=== PATIENT | female | born 1975 | race Caucasian/White ===

== ENCOUNTER 2017-01-25 15:55 | Inpatient (IN) | payer MEDICAID ==
[2017-01-25] MEDS ORDERED: Sodium Citrate/Citric Acid 15 ml Sol PO ONE (16:56)
[2017-01-25] MEDS ORDERED: Lactated Ringer's 1,000 ML IV SCH (17:00)
--- NOTE | 2017-01-25 17:04 | OBHP ---
Datetime: 01/25/2017 16:57 IP Adm Impression: , intrauterine ; Intact Membranes IP Chief Complaint Other: feeling week and sweating IP Admit Plan: Admit to unit; Initiate Section protocol Admit Comment, IP Provider: at 38+weeks came with c/o ctxs started in am, irrg. c/o weakness an d pain.no vb, lof,+fm. obhx 1 x c/s, 1 x , 1 x pmh den med pnv all nkda psh c/s soch de ve 1-/50/-3 a/p at 38=weeks previous c/s in labor admit to l_d npo/ivf labs pain dhruv anthesiaa aware skin abxs will take informed consent Pelvic Type - PN: Adequate Extremities - PN: Normal Abdomen - PN: Normal Back - PN: Normal Breast - PN: Normal Lungs - PN: Normal Heart - PN: Normal Thyroid - PN: Normal Neurologic - PN: Normal HEENT - PN: Normal General - PN: Normal FHR - Baseline A Provider: 130 Contraction Comments Provider: irrg Comments, ACOG Physical Exam: gravid,non tender ext no edema,no calf ten IP Hx Assessment: The History has been Reviewed and is Current EGA AdmitDate IP: 38.1 Vital Signs Provider: Reviewed; Within Normal Limits IP Chief Complaint: Uterine contractions NICHD Variability Prov Fetus A: Moderate 6-25bpm NICHD Accel Fetus A IP Provider: 15X15 FHR Category Provider Fetus A: Category I Dilatation, Provider: 2 Effacement, Provider: 50 Station, Provider: -3 Genitourinary Exam: Normal DTRs - PN: Normal
[2017-01-25] MEDS ORDERED: Sodium Citrate/Citric Acid 15 ml Sol ONE (17:25)
[2017-01-25] MEDS ORDERED: cefOXitin IV 2 gm in Dextrose 2 GM/50 ML BAG IVPB ONE ×2 (17:26→19:00)
[2017-01-25 17:37] LABS: EOS # 0.2 K/uL (0.0-0.7); MEAN PLATELET VOLUME 8.3 fL (7.2-11.7)
[2017-01-25 17:41] LABS: BASO # 0.1 K/uL (0.0-0.2); BASO % 0.8 % (0.0-2.0); EOS % 2.4 % (0.0-4.0); HEMATOCRIT 37.2 % (34.0-47.0); LYMPH # 1.3 K/uL (1.0-4.3); LYMPH % 18.5 % (20.0-40.0); MEAN CELL VOLUME 86.9 fL (81.0-99.0); MEAN CORPUSCULAR HEMOGLOBIN 30.4 pg (27.0-31.0); MONO # 0.5 K/uL (0.0-0.8); MONO % 7.6 % (0.0-10.0); RED CELL DISTRIBUTION WIDTH 14.5 % (11.5-14.5)
[2017-01-25 17:47] LABS: RBC URINE 6 /hpf (0-3); TRANSITIONAL EPITHIAL < 1 /hpf (0-3); URINE BACTERIA FEW (<OCC); URINE BILIRUBIN NEGATIVE (NEGATIVE); URINE BLOOD 1+ (NEGATIVE); URINE COLOR Yellow (YELLOW); URINE GLUCOSE (UA) NORMAL (Normal); URINE KETONE NEGATIVE (NEGATIVE); URINE LEUKOCYTE ESTERASE 3+ Leu/uL (Negative); URINE PROTEIN NEGATIVE (NEGATIVE); URINE UROBILINOGEN NORMAL mg/dL (0.2-1.0); WBC URINE 27 /hpf (0-5)
[2017-01-25 17:51] LABS: ALKALINE PHOSPHATASE 130 U/L (38-126); ALT/SGPT 21 U/L (9-52); AST/SGOT 12 U/L (14-36); BLOOD UREA NITROGEN 6 mg/dL (7-17); CALCIUM 9.6 mg/dl (8.6-10.4); CARBON DIOXIDE 21 mmol/L (22-30); CHLORIDE 102 mmol/L (98-107); GFR AFRICAN-AMERICAN > 60; GLUCOSE,RANDOM 78 mg/dL (65-105); POTASSIUM 3.9 mmol/L (3.6-5.2); SODIUM 136 mmol/L (132-148); TOTAL PROTEIN 6.8 g/dL (6.3-8.3)
[2017-01-25] MEDS ORDERED: Dextrose 5%/0.45% NS 1,000 ML IV SCH (18:00)
[2017-01-25] MEDS ORDERED: Oxytocin 20 units in LR 2,000 ML IV ONE (18:31)
[2017-01-25] MEDS ORDERED: Morphine 1 mg/ml preservative-free Inj(Duramorph) ONE (18:35)
[2017-01-25] MEDS ORDERED: Oxycodone/Acetaminophen 5/325 mg Tab PO PRN (18:59)
--- NOTE | 2017-01-25 19:20 | PCM.SURG1 ---
Surgeon's Initial Post Op Note - Surgeon's Notes Surgeon: dr santillan Admissions Coordinator: dr delcid Type of Anesthesia: Spinal Anesthesia Administered By: dr chavez Pre-Operative Diagnosis: 41yr at 38+weeks previous c/s in labor Operative Findings: see the op report Post-Operative Diagnosis: same Operation Performed: repeat section Specimen/Specimens Removed: cord blood. placente Estimated Blood Loss: EBL {In ML}: 800 Blood Products Given: N/A Drains Used: No Drains Post-Op Condition: Good Date of Surgery/Procedure: 01/25/17 Time of Surgery/Procedure: 21:50
[2017-01-25] MEDS ORDERED: ePHEDrine 50 mg/ml Inj ONE (19:56)
[2017-01-25] MEDS ORDERED: Phenylephrine 10 mg/ml Inj ONE (19:56)
[2017-01-25] MEDS ORDERED: Oxytocin 10 Units/ml Inj ONE (20:31)
--- NOTE | 2017-01-25 21:06 | OBDS ---
DELIVERY PERSONNEL Delivery Doctor: Zenon Cat MD Scrub Nurse: Maribel Ross OBT [place] Boatman: Brayden Castano RN Anesthesiologist: BAKARI Zhang MATERNAL INFORMATION Delivery Anesthesia: Spinal Maternal Complications: None RN Comments: PT CAME TO UNIT C/O PAIN. IS PREVIOUS C/S WITH 1 . PT WAS PREP FOR C/S ..PT DEL IVERED LIVE BABY BOY. 9/9 BABY TO NBN Provider Comments: baby deliverd in little. end clean no com 9/9 LABOR SUMMARY EDC: 02/07/2017 00:00 No. Babies in Womb: 1 Attempted: No Labor Anesthesia: None LABOR INFORMATION Reason for Induction: Not Applicable Oxytocin: N/A Group B Beta Strep: Positive Antibiotics # of Doses: 1 Antibiotics Time of Last Dose: 18:53 Steroids Given: None Reason Steroids Not Administered: Not Applicable MEMBRANES Membranes Rupture Method: Artificial Rupture of Membranes: 01/25/2017 20:18 Length of Rupture (hrs): 0.03 Amniotic Fluid Color: Clear Amniotic Fluid Amount: Moderate Amniotic Fluid Odor: Normal STAGES OF LABOR Stage 3 hrs: 0 Stage 3 min: 1 VAGINAL DELIVERY Episiotomy: None Laceration Extension: N/A Laceration Type: None CSECTION DELIVERY Primary Indication: Repeat Elective Secondary Indication: abdominal pain CSection Urgency: Emergency CSection Incidence: Repeat Labor: No Labor Elective: Elective CSection Incision: Lower Uterine Transverse BABY A INFORMATION Infant Delivery Date/Time: 01/25/2017 20:20 Method of Delivery: Born in Route : No : N/A Forceps: N/A Vacuum Extraction: N/A Shoulder Dystocia : No SHOULDER DYSTOCIA BABY A Infant Delivery Date/Time: 01/25/2017 20:20 PRESENTATION/POSITION BABY A Presentation: Cephalic Cephalic Presentation: Vertex Vertex Position: Left Occipital Anterior Breech Presentation: N/A PLACENTA INFORMATION BABY A Placenta Delivery Time : 01/25/2017 20:21 Placenta Method of Delivery: Manual Removal Placenta Status: Delivered SCORES BABY A Heart Rate 1 min: >100 bpm Resp Effort 1 min: Good Cry Reflex Irritability 1 min: Cough or Sneeze or Pulls Away Muscle Tone 1 min: Active Motion Color 1 min: Body [place], Extremities Blue Resuscitation Effort 1 min: N/A SCORE 1 MIN: 9 Heart Rate 5 min: >100 bpm Resp Effort 5 min: Good Cry Reflex Irritability 5 min: Cough or Sneeze or Pulls Away Muscle Tone 5 min: Active Motion Color 5 min: Body [place], Extremities Blue Resuscitation Effort 5 min: N/A SCORE 5 MIN: 9 INFANT INFORMATION BABY A Gestational Age at Delivery: 38.0 Gestational Status: Term Outcome : Liveborn Condition : Stable Sex: Male IDENTIFICATION/MEDS BABY A ID Band Number: [id number] ID Band Location: Left Leg; Left Arm Sensor Applied: Yes Sensor Number: [id number] Sensor Location : Cord Clamp Vitamin K Given : Not Given Erythromycin Given: Not Given WEIGHT/LENGTH BABY A Birthweight (gms): 3890 Infant Weight (lb): 8 Infant Weight (oz): 9 Infant Length Inches: 21.00 Length cms: 53.3 CORD INFORMATION BABY A No. Cord Vessels: 3 Nuchal Cord : N/A Nuchal Cord Other: 0 Cord Blood Taken: Yes Infant Suction: Mouth; Nose ASSESSMENT BABY A Infant Complications: None Physical Findings at Delivery: Within Normal Limits Respirations: Appears Normal Reservoir Engineer/ALS Called : Yes Infant Care By: DR SEGURA/ DONOVAN MORA Transferred To: [facility]
[2017-01-25] MEDS ORDERED: DiphenhydrAMINE 50 mg/ml Inj IVP PRN (21:20)
[2017-01-25 21:59] LABS: RAPID PLASMA REAGIN NONREACTIVE (NONREACTIVE)
[2017-01-26 08:17] LABS: HEMATOCRIT 34.3 % (34.0-47.0); MEAN CELL VOLUME 88.1 fL (81.0-99.0); MEAN CORPUSCULAR HEMOGLOBIN 30.2 pg (27.0-31.0); MEAN CORPUSCULAR HGB CONC 34.3 g/dL (33.0-37.0); MEAN PLATELET VOLUME 8.5 fL (7.2-11.7); RED CELL DISTRIBUTION WIDTH 14.5 % (11.5-14.5)
[2017-01-26] MEDS: Simethicone 80 mg Chewtab PO SCH ×4 (10:10→22:02)
[2017-01-26] MEDS: Oxycodone/Acetaminophen 5/325 mg Tab PO PRN ×2 (10:11→22:01)
[2017-01-26] MEDS ORDERED: Bisacodyl 5mg EC Tab PO ONE (19:00)
[2017-01-27] MEDS: Simethicone 80 mg Chewtab PO SCH ×4 (09:11→21:21)
[2017-01-27] MEDS: Oxycodone/Acetaminophen 5/325 mg Tab PO PRN ×2 (13:07→17:53)
--- NOTE | 2017-01-27 20:00 | OBPPN ---
Datetime: 01/27/2017 07:04 PP Pain Prov: Within normal limits PP Nausea Prov: Denies PP Flatus Prov: No PP BM Prov: No PP Impression Prov: Normal progression PP Plan Prov: Continue present management PP Progress Note Prov: Patient seen and examined at bedside. Per nursing no acute events overnight. Patient is doing well, pain is controlled. Ambulating and tolerating diet. Lochia is mild. Urinating without difficulty. Denies passing flatus or BM. Denies headaches, dizziness, cp, palpitations, sob, urinary symptoms. Breast and bottle feeding. VS: BP 107/62 HR 89 Temp 98.0 I/O: 1195/1600 Gen: AAOx3, NAD CV: RRR Lungs: CTA B/L Abd: Soft, appropriately tender, fundus firm at umbilicus, incision c/d/i Ext: No clubbing, cyanosis, edema; no calf tenderness Labs: 7.0>13.0/37.2<191 10.0>11.8/34.3<169 A positive Rubella immune A/P: 41 yo at 38.1 wks s/p RLTCD POD#2 1. Stable, afebrile 2. Pain control - motrin and percocet prn 3. Encourage ambulation and hydration; encourage 4. Encourage ISS use 5. Male infant - desires circ 6. Continue routine post care 7. Anticipate discharge tomorrow 8. Plan d/w attending Fidelia Jon DO PGY-1 Vital Signs Provider PP: Reviewed
[2017-01-28] MEDS: Simethicone 80 mg Chewtab PO SCH ×3 (00:06→09:32)
--- NOTE | 2017-01-28 05:52 | OP ---
PROCEDURE DATE: 01/25/2017 PREOPERATIVE DIAGNOSIS: A 41-year-old 4 para 3 at 38 plus weeks with previous section and labor. POSTOPERATIVE DIAGNOSIS: A 41-year-old 4 para 3 at 38 plus weeks with previous section and labor. SURGEON: Zenon Cat MD MULTIPLE SPINDLE ROUTER OPERATOR: West Dewitt MD, who was present throughout the surgery for exposure, retraction, pushing at the time of the delivery. TYPE OF ANESTHESIA: Spinal. ANESTHESIA ADMINISTERED BY: Devendra Diez MD COMPLICATIONS: None. DESCRIPTION OF PROCEDURE: After informed consent was obtained, the patient was brought to the operating room, placed on the table where spinal anesthesia was given. Once the IV sedation was given, the patient was prepped and draped in the normal sterile fashion. At the site of the previous skin incision, an incision was made with a knife, the subcutaneous cut with a Bovie. The fascia was then excised on both the sides using curved Diana scissors. Fascia was first from the site of the umbilicus and other site of the rectal muscle. The rectal muscle was lifted up with two Allis and it was cut with the knife and then the peritoneum was lifted up with Allis and cut with the Metzenbaum scissors and went to the abdominal cavity. Bladder blade was placed. Bladder flap was created. Lower uterine segment incision was made with a knife, it was extended using curved Diana scissors. Baby delivered in a PARKER position. Cord was clamped and cut. Baby was handed to the awaiting gps navigation installer. Placenta delivered manually and sent to the pathology. Uterus was exteriorized and cleared of all clots and debris. The uterus incision was closed with #1 Vicryl running interlocking fashion. Second layer was closed with the same stitch. Cul-de-sac was cleared of all the clots and debris. Uterus was returned back to abdominal cavity. Gutters were cleared of all the clots and debris. Peritoneum was closed using 2-0 Vicryl in running interlocking fashion. Muscle was closed using 2-0 Vicryl in running interlocking fashion. At the site incision skin, we put the Intercede. After that the fascia was closed #1 Vicryl interlocking fashion. Subcutaneous tissue was closed with 0 Vicryl in interrupted fashion. Skin was closed using 3-0 Monocryl straight needle. The patient tolerated the procedure well. Lap, sponge, and instrument counts were correct x2. Zenon Cat MD
--- NOTE | 2017-01-28 08:04 | OBDCSUM ---
Datetime: 01/28/2017 07:51 Discharged to, Provider: Home Follow up at, Provider: dr santillan Disch Instr Activity: Normal activity; May Shower Disch Instr Diet: Regular Discharge Diet restrict Prov: none Discharge Diagnosis, Provider: Term Delivered Discharge Time: 01/28/2017 11:00 Follow up in weeks, Provider: 02/03 Disch Referrals: None Disch Activity Restrictions: No exercising; No lifting; No sexual activity; Nothing in vagina - Inte rcourse, tampons, douche Discharge Comment, Provider: no sex percocet prn f/u in 1week Discharge Diagnosis Prov Other: s/p repeat c/s
[2017-01-28 16:16] VITALS: BP 114/68; PULSE 90; RESP 18; TEMP 97; O2SAT 97
== END 2017-01-28 11:20 | disposition home or self-care (01) | DRG 766 ==
LOC: C.EROB 15:55 → C.4D 16:56 → C.4M 23:57
PROVIDERS: ADMIT Obstetrics & Gynecology; ATTEND Obstetrics & Gynecology
PROC: 10D00Z1 Extraction of Products of Conception, Low, Open Approach (ICD-10-PCS; principal; 2017-01-25)
DX: O99.824 Streptococcus B carrier state complicating childbirth (principal); O34.219 Maternal care for unspecified type scar from previous cesarean delivery; Z3A.38 38 weeks gestation of pregnancy; Z37.0 Single live birth